=== PATIENT | female | born 1930 | race Caucasian/White ===

== ENCOUNTER → 2018-02-01 | Outpatient (CLI) | payer MEDICARE ==
[2012-03-06 17:14] VITALS: BP 128/59
[~2018-02-01] MED LIST: CALCIUM1 CAP PO; GLIPIZIDE5 MG; KEPPRA 500MG500 MG PO; LISINOPRIL/HCTZ1 TA1; OMEPRAZOLE40 MG PO; TENORMIN100 MG PO
== END ==
LOC: RAD 08:29
DX: N18.3 Chronic kidney disease, stage 3 (moderate) (principal); N26.1 Atrophy of kidney (terminal)

== ENCOUNTER → 2018-09-21 | Outpatient (CLI) | payer MEDICARE ==
[2012-03-06 17:14] VITALS: BP 128/59
[2018-09-21 16:49] LABS: CALCIUM 9.5 mg/dL (8.4-10.2)
== END ==
LOC: LAB 16:27
PROVIDERS: Family Medicine
DX: E87.5 Hyperkalemia (principal)

== ENCOUNTER → 2019-05-02 | Outpatient (CLI) | payer MEDICARE ==
[2012-03-06 17:14] VITALS: BP 128/59
[2019-05-02 15:26] LABS: HEMATOCRIT 35.7 % (37.0-47.0); HEMOGLOBIN 10.8 g/dL (12.5-16.0)
[2019-05-02 16:08] LABS: ALBUMIN 3.6 g/dL (3.4-4.8)
[2019-05-02 16:09] LABS: POTASSIUM 4.8 mmol/L (3.5-5.1)
[2019-05-02 16:10] LABS: CALCIUM 8.6 mg/dL (8.3-10.5)
== END ==
LOC: LAB 14:52
PROVIDERS: Internal Medicine Nephrology
DX: I12.9 Hypertensive chronic kidney disease with stage 1 through stage 4 chronic kidney disease, or unspecified chronic kidney disease (principal); N18.3 Chronic kidney disease, stage 3 (moderate); E21.1 Secondary hyperparathyroidism, not elsewhere classified

== ENCOUNTER → 2019-05-21 | Outpatient (CLI) | payer MEDICARE ==
[2012-03-06 17:14] VITALS: BP 128/59
== END ==
LOC: RAD 11:24 → MAMMO 11:30
DX: Z13.820 Encounter for screening for osteoporosis (principal); M81.0 Age-related osteoporosis without current pathological fracture; M46.86 Other specified inflammatory spondylopathies, lumbar region

== ENCOUNTER → 2019-07-10 | Outpatient (CLI) | payer MEDICARE ==
[2012-03-06 17:14] VITALS: BP 128/59
[2019-07-10 12:08] LABS: URINE APPEARANCE CLEAR; URINE COLOR YELLOW
[2019-07-10 12:09] LABS: URINE BILIRUBIN NEGATIVE (NEGATIVE); URINE BLOOD TRACE (NEGATIVE); URINE GLUCOSE NEGATIVE (NEGATIVE); URINE KETONE NEGATIVE (NEGATIVE); URINE LEUKOCYTE ESTERASE NEGATIVE (NEGATIVE); URINE NITRATE NEGATIVE (NEGATIVE); URINE PROTEIN(semi-quant) TRACE mg/dL (NEGATIVE); URINE UROBILINOGEN NORMAL (NORMAL)
== END ==
LOC: LAB 11:08
PROVIDERS: Internal Medicine Nephrology
DX: R30.0 Dysuria (principal)

== ENCOUNTER → 2019-10-02 | Outpatient (CLI) | payer MEDICARE ==
[2012-03-06 17:14] VITALS: BP 128/59
[2019-10-02 15:00] LABS: POTASSIUM 5.6 mmol/L (3.5-5.1)
[2019-10-02 15:01] LABS: CALCIUM 8.3 mg/dL (8.3-10.5)
== END ==
LOC: LAB 14:26
PROVIDERS: Internal Medicine Nephrology
DX: I12.9 Hypertensive chronic kidney disease with stage 1 through stage 4 chronic kidney disease, or unspecified chronic kidney disease (principal); N18.4 Chronic kidney disease, stage 4 (severe)

== ENCOUNTER → 2020-06-02 | Outpatient (CLI) | payer MEDICARE ==
[2012-03-06 17:14] VITALS: BP 128/59
[2020-06-02 16:19] LABS: ALBUMIN 3.5 g/dL (3.4-4.8)
[2020-06-02 16:20] LABS: POTASSIUM 4.4 mmol/L (3.5-5.1)
[2020-06-02 16:21] LABS: CALCIUM 8.5 mg/dL (8.3-10.5)
== END ==
LOC: LAB 15:53
PROVIDERS: Internal Medicine Nephrology
DX: I12.9 Hypertensive chronic kidney disease with stage 1 through stage 4 chronic kidney disease, or unspecified chronic kidney disease (principal); N18.4 Chronic kidney disease, stage 4 (severe); E21.1 Secondary hyperparathyroidism, not elsewhere classified

== ENCOUNTER → 2020-09-18 | Outpatient (CLI) | payer MEDICARE ==
[2012-03-06 17:14] VITALS: BP 128/59
[~2020-09-18] MED LIST changes: +CALCITRIOL PO; +CALCIUM 600 +1 EAC7 PO; -CALCIUM1 CAP PO; +COREG 6.256.25 MG/TA PO; +COZAAR100 MG PO; +ECOTRIN325 M2 PO; +LEVEMIR100 U/M1 SQ; +NEURONTIN100 M1 PO; +NORVASC 10MG10 MG PO; +NYSTOP POWDER15 GM TP; +PRAVASTATIN SOD10 MG PO; +SODIUM BIC650 MG/TAB PO
[2020-09-18 15:32] LABS: EOS # 0.3 (0.04-0.40); EOS % 4.2 % (1.0-5.0); HEMATOCRIT 30.7 % (37.0-47.0); LYMPH# 1.4 (1.50-4.00); MEAN CELL VOLUME 90 fl (78-100); MEAN CORPUSCULAR HEMOGLOBIN 26 pg (27-31); MEAN CORPUSCULAR HGB CONC 29 g/dL (33-37); MEAN PLATELET VOLUME 10.5 fl (7.4-10.4); MONO # 0.8 (0.20-0.80); PLATELET COUNT 413 K/mm3 (130-400); RED BLOOD COUNT 3.42 M/mm3 (4.10-5.30); RED CELL DISTRIBUTION WIDTH 13.6 % (11.5-14.5); WHITE BLOOD COUNT 7.6 K/mm3 (4.8-10.8)
== END ==
LOC: LAB 14:30
PROVIDERS: Family Medicine
DX: D64.9 Anemia, unspecified (principal)

== ENCOUNTER 2020-09-19 20:28 | Emergency (ER) | payer MEDICARE ==
[~2020-09-19] VITALS: Ht 157.5 cm; Wt 68.2 kg
[~2020-09-19 20:28] MED LIST changes: -CALCITRIOL PO; -COREG 6.256.25 MG/TA PO; -COZAAR100 MG PO; -ECOTRIN325 M2 PO; -LEVEMIR100 U/M1 SQ; -NEURONTIN100 M1 PO; -NORVASC 10MG10 MG PO; -NYSTOP POWDER15 GM TP; -PRAVASTATIN SOD10 MG PO; -SODIUM BIC650 MG/TAB PO
[2020-09-19 21:12] LABS: HEMATOCRIT 31.5 % (37.0-47.0); HEMOGLOBIN 9.3 g/dL (12.5-16.0); MEAN CELL VOLUME 90 fl (78-100); MEAN CORPUSCULAR HEMOGLOBIN 26 pg (27-31); MEAN CORPUSCULAR HGB CONC 30 g/dL (33-37); MEAN PLATELET VOLUME 10.2 fl (7.4-10.4); PLATELET COUNT 496 K/mm3 (130-400); RED BLOOD COUNT 3.52 M/mm3 (4.10-5.30); RED CELL DISTRIBUTION WIDTH 13.5 % (11.5-14.5); WHITE BLOOD COUNT 8.7 K/mm3 (4.8-10.8)
[2020-09-19 21:17] LABS: LYMPHOCYTE 15 % (20-51); MONOCYTE 14 % (3-10)
[2020-09-19 21:18] LABS: ALBUMIN 3.3 g/dL (3.4-4.8); NEUTROPHILS 66 % (42-75); POTASSIUM 5.4 mmol/L (3.5-5.1)
[2020-09-19 21:20] LABS: CALCIUM 7.9 mg/dL (8.3-10.5)
[2020-09-19 21:21] LABS: TOTAL PROTEIN 5.7 g/dL (6.2-8.1)
[2020-09-19 21:23] LABS: TOTAL BILIRUBIN 0.3 mg/dL (0.2-1.2)
[2020-09-19 21:37] LABS: PROTHROMBIN TIME 9.9 SECONDS (9.0-12.0)
[2020-09-19] MEDS ORDERED: ECOTRIN325 M2 PO (21:42)
[2020-09-19 21:43] LABS: URINE APPEARANCE CLEAR; URINE COLOR YELLOW; URINE PROTEIN(semi-quant) 3+ mg/dL (NEGATIVE)
[2020-09-19] MEDS ORDERED: CALCITRIOL PO (21:43)
[2020-09-19 21:44] LABS: URINE BILIRUBIN NEGATIVE (NEGATIVE); URINE BLOOD TRACE (NEGATIVE); URINE KETONE NEGATIVE (NEGATIVE); URINE LEUKOCYTE ESTERASE NEGATIVE (NEGATIVE); URINE MUCUS PRESENT (NOT PRESENT); URINE NITRATE NEGATIVE (NEGATIVE); URINE UROBILINOGEN NORMAL (NORMAL)
[2020-09-19] MEDS ORDERED: COREG 6.256.25 MG/TA PO (21:44)
[2020-09-19] MEDS ORDERED: COZAAR100 MG PO (21:45)
[2020-09-19] MEDS ORDERED: LEVEMIR100 U/M1 SQ ×2 (21:46)
[2020-09-19] MEDS ORDERED: NORVASC 10MG10 MG PO (21:47)
[2020-09-19] MEDS ORDERED: NEURONTIN100 M1 PO (21:47)
[2020-09-19] MEDS ORDERED: NYSTOP POWDER15 GM TP (21:48)
[2020-09-19] MEDS ORDERED: SODIUM BIC650 MG/TAB PO (21:49)
[2020-09-19] MEDS ORDERED: PRAVASTATIN SOD10 MG PO (21:49)
[2020-09-19 23:18] VITALS: BP 162/70
== END 2020-09-19 23:18 | disposition home or self-care (01) ==
LOC: ED 20:28
PROVIDERS: Nurse Practitioner
DX: S01.81XA Laceration without foreign body of other part of head, initial encounter (principal); E11.9 Type 2 diabetes mellitus without complications; I13.10 Hypertensive heart and chronic kidney disease without heart failure, with stage 1 through stage 4 chronic kidney disease, or unspecified chronic kidney disease; Z79.82 Long term (current) use of aspirin; Z79.4 Long term (current) use of insulin; W18.09XA Striking against other object with subsequent fall, initial encounter; Y92.009 Unspecified place in unspecified non-institutional (private) residence as the place of occurrence of the external cause
CPT/HCPCS: 90714

== ENCOUNTER → 2020-10-14 | Outpatient (CLI) | payer MEDICARE ==
[2020-09-19 23:18] VITALS: BP 162/70
[~2020-10-14] MED LIST changes: +CALCITRIOL PO; +COREG 6.256.25 MG/TA PO; +COZAAR100 MG PO; +ECOTRIN325 M2 PO; +LEVEMIR100 U/M1 SQ; +NEURONTIN100 M1 PO; +NORVASC 10MG10 MG PO; +NYSTOP POWDER15 GM TP; +PRAVASTATIN SOD10 MG PO; +SODIUM BIC650 MG/TAB PO
[2020-10-14 10:05] LABS: POTASSIUM 5.6 mmol/L (3.5-5.1)
[2020-10-14 10:06] LABS: CALCIUM 8.2 mg/dL (8.3-10.5); HEMATOCRIT 31.7 % (37.0-47.0); HEMOGLOBIN 9.2 g/dL (12.5-16.0); MEAN CELL VOLUME 86 fl (78-100); MEAN CORPUSCULAR HEMOGLOBIN 25 pg (27-31); MEAN PLATELET VOLUME 10.5 fl (7.4-10.4); PLATELET COUNT 401 K/mm3 (130-400); RED BLOOD COUNT 3.67 M/mm3 (4.10-5.30); RED CELL DISTRIBUTION WIDTH 13.8 % (11.5-14.5); WHITE BLOOD COUNT 7.2 K/mm3 (4.8-10.8)
[2020-10-14 10:15] LABS: MEAN CORPUSCULAR HGB CONC 29 g/dL (33-37)
[2020-10-14 10:38] LABS: LYMPHOCYTE 22 % (20-51); MONOCYTE 15 % (3-10); NEUTROPHILS 59 % (42-75)
== END ==
LOC: LAB 09:41
PROVIDERS: Family Medicine
DX: E83.51 Hypocalcemia (principal)

== ENCOUNTER → 2020-10-16 | Outpatient (CLI) | payer MEDICARE ==
[2020-09-19 23:18] VITALS: BP 162/70
[~2020-10-16] MED LIST changes: +CYANOCOBAL1000 MCG/1 IM; +DAILY VALUE1 EACH PO; +DULCOLAX S10 MG/SUPP RC; +FEOSOL325 MG PO; +HYDROCHLOROTH12.5 M2 PO; +KLONOPIN 0.5MG0.5 MG PO; +LEVEMIR FLEX100 U/ML; +LORATADINE10 MG PO; +MIRALAX17 GM PO; +NORCO 325 MG-51 TA1 PO; +NOVOLOG FLEX100 U/ML; +SENNA8.6 M1; +TRAMADOL 50 MG TAB PO; +TYLENOL 325MG325 MG PO; +VITAMIN C500 M6 PO
[2020-10-16 12:50] LABS: CALCIUM 8.4 mg/dL (8.3-10.5)
== END ==
LOC: LAB 09:30
PROVIDERS: Family Medicine
DX: N18.4 Chronic kidney disease, stage 4 (severe) (principal)

== ENCOUNTER → 2020-10-17 | Outpatient (CLI) | payer MEDICARE ==
[2020-09-19 23:18] VITALS: BP 162/70
[2020-10-17 07:33] LABS: POTASSIUM 5.5 mmol/L (3.5-5.1)
[2020-10-17 07:35] LABS: CALCIUM 8.1 mg/dL (8.3-10.5)
== END ==
LOC: LAB 06:44
PROVIDERS: Family Medicine
DX: E11.65 Type 2 diabetes mellitus with hyperglycemia (principal); E11.22 Type 2 diabetes mellitus with diabetic chronic kidney disease; N18.4 Chronic kidney disease, stage 4 (severe)

== ENCOUNTER → 2020-10-19 | Outpatient (CLI) | payer MEDICARE ==
[2020-09-19 23:18] VITALS: BP 162/70
[2020-10-19 11:25] LABS: POTASSIUM 4.6 mmol/L (3.5-5.1)
[2020-10-19 11:26] LABS: CALCIUM 7.8 mg/dL (8.3-10.5)
== END ==
LOC: LAB 10:55
PROVIDERS: Family Medicine
DX: N18.4 Chronic kidney disease, stage 4 (severe) (principal)

== ENCOUNTER → 2020-10-22 | Outpatient (CLI) | payer MEDICARE ==
[2020-10-22 11:57] LABS: ALBUMIN 3.5 g/dL (3.4-4.8); POTASSIUM 5.2 mmol/L (3.5-5.1)
[2020-10-22 11:58] LABS: CALCIUM 8.4 mg/dL (8.3-10.5)
[2020-10-22 12:00] LABS: TOTAL PROTEIN 6.3 g/dL (6.2-8.1)
[2020-10-22 12:01] LABS: TOTAL BILIRUBIN 0.2 mg/dL (0.2-1.2)
== END ==
LOC: LAB 11:35
PROVIDERS: Family Medicine
DX: E83.51 Hypocalcemia (principal)

== ENCOUNTER → 2020-10-26 | Outpatient (CLI) | payer MEDICARE ==
[2020-10-26 11:39] LABS: EOS # 0.3 (0.04-0.40); EOS % 4.2 % (1.0-5.0); HEMATOCRIT 28.5 % (37.0-47.0); HEMOGLOBIN 8.7 g/dL (12.5-16.0); LYMPH# 1.2 (1.50-4.00); MEAN CELL VOLUME 86 fl (78-100); MEAN CORPUSCULAR HEMOGLOBIN 26 pg (27-31); MEAN CORPUSCULAR HGB CONC 31 g/dL (33-37); MEAN PLATELET VOLUME 11.1 fl (7.4-10.4); MONO # 0.8 (0.20-0.80); NEU # 4.4 (1.40-6.50); PLATELET COUNT 308 K/mm3 (130-400); RED BLOOD COUNT 3.32 M/mm3 (4.10-5.30); RED CELL DISTRIBUTION WIDTH 13.7 % (11.5-14.5); WHITE BLOOD COUNT 6.7 K/mm3 (4.8-10.8)
[2020-10-26 11:57] LABS: POTASSIUM 4.6 mmol/L (3.5-5.1)
[2020-10-26 11:58] LABS: CALCIUM 7.8 mg/dL (8.3-10.5)
[2020-10-26 22:08] LABS: FOLATE (FOLIC ACID) 11.4 ng/mL (7.0-31.4)
== END ==
LOC: LAB 11:13
PROVIDERS: Family Medicine
DX: N18.4 Chronic kidney disease, stage 4 (severe) (principal)

== ENCOUNTER → 2020-11-12 | Outpatient (REF) ==
[2020-11-12 16:45] LABS: HEMATOCRIT 27.6 % (37.0-47.0); HEMOGLOBIN 8.1 g/dL (12.5-16.0); MEAN CELL VOLUME 91 fl (78-100); MEAN CORPUSCULAR HEMOGLOBIN 27 pg (27-31); MEAN PLATELET VOLUME 10.2 fl (7.4-10.4); PLATELET COUNT 328 K/mm3 (130-400); RED BLOOD COUNT 3.05 M/mm3 (4.10-5.30); RED CELL DISTRIBUTION WIDTH 16.8 % (11.5-14.5); WHITE BLOOD COUNT 10.8 K/mm3 (4.8-10.8)
[2020-11-12 17:02] LABS: MEAN CORPUSCULAR HGB CONC 29 g/dL (33-37)
[2020-11-12 17:50] LABS: HYPOCHROMIA 1+; LYMPHOCYTE 13 % (20-51); MONOCYTE 10 % (3-10); NEUTROPHILS 76 % (42-75)
== END ==
LOC: LAB 16:03
PROVIDERS: Physician Assistant
DX: Z01.89 Encounter for other specified special examinations (principal)

== ENCOUNTER → 2020-11-25 | Outpatient (REF) ==
[2020-11-25 16:59] LABS: HEMOGLOBIN 9.1 g/dL (12.5-16.0); MEAN CELL VOLUME 89 fl (78-100); MEAN CORPUSCULAR HEMOGLOBIN 26 pg (27-31); MEAN PLATELET VOLUME 10.3 fl (7.4-10.4); PLATELET COUNT 420 K/mm3 (130-400); RED BLOOD COUNT 3.48 M/mm3 (4.10-5.30); RED CELL DISTRIBUTION WIDTH 17.2 % (11.5-14.5); WHITE BLOOD COUNT 7.7 K/mm3 (4.8-10.8)
[2020-11-25 17:02] LABS: POTASSIUM 5.4 mmol/L (3.5-5.1)
[2020-11-25 17:03] LABS: CALCIUM 8.3 mg/dL (8.3-10.5)
[2020-11-25 17:09] LABS: MEAN CORPUSCULAR HGB CONC 29 g/dL (33-37)
[2020-11-25 17:27] LABS: LYMPHOCYTE 20 % (20-51); MONOCYTE 15 % (3-10); NEUTROPHILS 63 % (42-75)
== END ==
LOC: LAB 16:45
PROVIDERS: Family Medicine
DX: Z01.89 Encounter for other specified special examinations (principal)

== ENCOUNTER → 2020-11-27 | Outpatient (REF) | payer MEDICARE | LOC: LAB 13:22 → EDSTATUS 13:27 | DX: E53.8 Deficiency of other specified B group vitamins (principal) ==

== ENCOUNTER → 2020-12-01 | Outpatient (REF) ==
[2020-12-01 12:44] LABS: PH-URINE 6.5 (5.0 - 8.0); URINE APPEARANCE HAZY; URINE BILIRUBIN NEGATIVE (NEGATIVE); URINE BLOOD NEGATIVE (NEGATIVE); URINE COLOR YELLOW; URINE GLUCOSE NEGATIVE (NEGATIVE); URINE KETONE NEGATIVE (NEGATIVE); URINE LEUKOCYTE ESTERASE NEGATIVE (NEGATIVE); URINE NITRATE NEGATIVE (NEGATIVE); URINE PROTEIN(semi-quant) 2+ mg/dL (NEGATIVE); URINE UROBILINOGEN NORMAL (NORMAL)
== END ==
LOC: LAB 10:50
PROVIDERS: Family Medicine
DX: Z01.89 Encounter for other specified special examinations (principal)

== ENCOUNTER 2020-12-09 12:55 | Outpatient (RCR) | payer MEDICARE ==
[~2020-12-09 12:55] MED LIST changes: -CYANOCOBAL1000 MCG/1 IM; -DAILY VALUE1 EACH PO; -DULCOLAX S10 MG/SUPP RC; -FEOSOL325 MG PO; -HYDROCHLOROTH12.5 M2 PO; -KLONOPIN 0.5MG0.5 MG PO; -LEVEMIR FLEX100 U/ML; -LORATADINE10 MG PO; -MIRALAX17 GM PO; -NORCO 325 MG-51 TA1 PO; -NOVOLOG FLEX100 U/ML; -SENNA8.6 M1; -TRAMADOL 50 MG TAB PO; -TYLENOL 325MG325 MG PO; -VITAMIN C500 M6 PO
[2020-12-09 13:40] VITALS: BP 151/67
[2020-12-09] MEDS ORDERED: CYANOCOBAL1000 MCG/1 IM ×2 (13:49)
[2020-12-09] MEDS ORDERED: FEOSOL325 MG PO (13:50)
[2020-12-09] MEDS ORDERED: HYDROCHLOROTH12.5 M2 PO (13:51)
[2020-12-09] MEDS ORDERED: LORATADINE10 MG PO (13:52)
[2020-12-13] MEDS ORDERED: TYLENOL 325MG325 MG PO (15:19)
[2020-12-13] MEDS ORDERED: KLONOPIN 0.5MG0.5 MG PO (15:20)
[2020-12-13] MEDS ORDERED: DULCOLAX S10 MG/SUPP RC (15:21)
[2020-12-13] MEDS ORDERED: MIRALAX17 GM PO (15:21)
[2020-12-13] MEDS ORDERED: DAILY VALUE1 EACH PO (15:22)
[2020-12-13] MEDS ORDERED: LEVEMIR FLEX100 U/ML (15:22)
[2020-12-13] MEDS ORDERED: NORCO 325 MG-51 TA1 PO (15:23)
[2020-12-13] MEDS ORDERED: NOVOLOG FLEX100 U/ML (15:23)
[2020-12-13] MEDS ORDERED: SENNA8.6 M1 ×2 (15:24→15:25)
[2020-12-13] MEDS ORDERED: TRAMADOL 50 MG TAB PO (15:26)
[2020-12-13] MEDS ORDERED: VITAMIN C500 M6 PO (15:26)
== END 2021-01-01 10:10 | disposition expired ==
LOC: AMSURD 12:55 → EDSTATUS 13:30 → AMSURD 01-01 10:10
DX: N18.9 Chronic kidney disease, unspecified (principal); D63.1 Anemia in chronic kidney disease; Z79.899 Other long term (current) drug therapy
CPT/HCPCS: J2916; J7050

== ENCOUNTER 2020-12-13 06:51 | Emergency (ER) | payer MEDICARE ==
[~2020-12-13 06:51] MED LIST changes: +CYANOCOBAL1000 MCG/1 IM; +FEOSOL325 MG PO; +HYDROCHLOROTH12.5 M2 PO; +LORATADINE10 MG PO
[2020-12-13 07:46] LABS: HEMATOCRIT 37.6 % (37.0-47.0); HEMOGLOBIN 10.9 g/dL (12.5-16.0); MEAN CELL VOLUME 92 fl (78-100); MEAN CORPUSCULAR HEMOGLOBIN 27 pg (27-31); MEAN PLATELET VOLUME 10.6 fl (7.4-10.4); RED BLOOD COUNT 4.11 M/mm3 (4.10-5.30)
[2020-12-13 07:48] LABS: MEAN CORPUSCULAR HGB CONC 29 g/dL (33-37); PLATELET COUNT 600 K/mm3 (130-400); RED CELL DISTRIBUTION WIDTH 18.3 % (11.5-14.5); WHITE BLOOD COUNT 22.5 K/mm3 (4.8-10.8)
[2020-12-13 08:01] LABS: ALBUMIN 3.3 g/dL (3.4-4.8)
[2020-12-13 08:02] LABS: POTASSIUM 5.1 mmol/L (3.5-5.1)
[2020-12-13 08:03] LABS: CALCIUM 8.3 mg/dL (8.3-10.5)
[2020-12-13 08:04] LABS: TOTAL PROTEIN 6.1 g/dL (6.2-8.1)
[2020-12-13 08:06] LABS: TOTAL BILIRUBIN 0.3 mg/dL (0.2-1.2)
[2020-12-13 08:19] LABS: TROPONIN-I 0.05 ng/mL (<0.030)
[2020-12-13 08:24] LABS: URINE APPEARANCE CLOUDY; URINE BILIRUBIN NEGATIVE (NEGATIVE); URINE COLOR YELLOW; URINE GLUCOSE 50 mg/dL mg/dL (NEGATIVE); URINE KETONE NEGATIVE (NEGATIVE); URINE PROTEIN(semi-quant) 3+ mg/dL (NEGATIVE); URINE UROBILINOGEN NORMAL (NORMAL)
[2020-12-13 08:25] LABS: URINE BLOOD NEGATIVE (NEGATIVE); URINE LEUKOCYTE ESTERASE TRACE (NEGATIVE); URINE NITRATE NEGATIVE (NEGATIVE); URINE WBC 0-1 /hpf (0-3)
[2020-12-13 08:33] LABS: LYMPHOCYTE 22 % (20-51); MONOCYTE 6 % (3-10); NEUTROPHILS 70 % (42-75)
[2020-12-13 08:39] LABS: D-DIMER 5.04 mg/L FEU (0.15-0.50)
[2020-12-13] MEDS ORDERED: TYLENOL 325MG325 MG PO (15:19)
[2020-12-13] MEDS ORDERED: KLONOPIN 0.5MG0.5 MG PO (15:20)
[2020-12-13] MEDS ORDERED: MIRALAX17 GM PO (15:21)
[2020-12-13] MEDS ORDERED: DULCOLAX S10 MG/SUPP RC (15:21)
[2020-12-13] MEDS ORDERED: DAILY VALUE1 EACH PO (15:22)
[2020-12-13] MEDS ORDERED: LEVEMIR FLEX100 U/ML (15:22)
[2020-12-13] MEDS ORDERED: NOVOLOG FLEX100 U/ML (15:23)
[2020-12-13] MEDS ORDERED: NORCO 325 MG-51 TA1 PO (15:23)
[2020-12-13] MEDS ORDERED: SENNA8.6 M1 ×2 (15:24→15:25)
[2020-12-13] MEDS ORDERED: VITAMIN C500 M6 PO (15:26)
[2020-12-13] MEDS ORDERED: TRAMADOL 50 MG TAB PO (15:26)
[2020-12-13 17:01] VITALS: BP 166/78
== END 2020-12-13 14:15 | disposition other institution (70) ==
LOC: ED 06:51
PROVIDERS: Family Medicine
DX: J81.0 Acute pulmonary edema (principal); I25.2 Old myocardial infarction; E11.22 Type 2 diabetes mellitus with diabetic chronic kidney disease; I13.0 Hypertensive heart and chronic kidney disease with heart failure and stage 1 through stage 4 chronic kidney disease, or unspecified chronic kidney disease; I50.9 Heart failure, unspecified; N18.9 Chronic kidney disease, unspecified; Z95.0 Presence of cardiac pacemaker; Z79.82 Long term (current) use of aspirin; Z79.4 Long term (current) use of insulin; Z20.822 Contact with and (suspected) exposure to COVID-19
CPT/HCPCS: J0360; J1815; J1940

== ENCOUNTER 2020-12-13 14:10 | Inpatient (IN) | payer MEDICARE ==
[2020-12-13] MEDS ORDERED: TYLENOL 325MG325 MG PO (15:19)
[2020-12-13] MEDS ORDERED: KLONOPIN 0.5MG0.5 MG PO (15:20)
[2020-12-13] MEDS ORDERED: MIRALAX17 GM PO (15:21)
[2020-12-13] MEDS ORDERED: DULCOLAX S10 MG/SUPP RC (15:21)
[2020-12-13] MEDS ORDERED: DAILY VALUE1 EACH PO (15:22)
[2020-12-13] MEDS ORDERED: LEVEMIR FLEX100 U/ML (15:22)
[2020-12-13] MEDS ORDERED: NORCO 325 MG-51 TA1 PO (15:23)
[2020-12-13] MEDS ORDERED: NOVOLOG FLEX100 U/ML (15:23)
[2020-12-13] MEDS ORDERED: SENNA8.6 M1 ×2 (15:24→15:25)
[2020-12-13] MEDS ORDERED: TRAMADOL 50 MG TAB PO (15:26)
[2020-12-13] MEDS ORDERED: VITAMIN C500 M6 PO (15:26)
[2020-12-13 16:47] VITALS: BP 127/74; BP 127/741
[2020-12-13 22:00] VITALS: BP 186/96
[2020-12-14 02:07] VITALS: BP 136/80
[2020-12-14 06:02] VITALS: BP 173/89
[2020-12-14 09:43] VITALS: BP 162/82
[2020-12-14 10:22] LABS: HEMATOCRIT 36.6 % (37.0-47.0); HEMOGLOBIN 10.7 g/dL (12.5-16.0); MEAN CELL VOLUME 91 fl (78-100); MEAN CORPUSCULAR HEMOGLOBIN 27 pg (27-31); MEAN PLATELET VOLUME 9.9 fl (7.4-10.4); PLATELET COUNT 460 K/mm3 (130-400); RED BLOOD COUNT 4.02 M/mm3 (4.10-5.30); WHITE BLOOD COUNT 16.9 K/mm3 (4.8-10.8)
[2020-12-14 10:27] LABS: MEAN CORPUSCULAR HGB CONC 29 g/dL (33-37); RED CELL DISTRIBUTION WIDTH 18.4 % (11.5-14.5)
[2020-12-14 10:34] LABS: POTASSIUM 5.1 mmol/L (3.5-5.1)
[2020-12-14 10:36] LABS: CALCIUM 8.4 mg/dL (8.3-10.5)
[2020-12-14 10:48] LABS: TROPONIN-I 0.47 ng/mL (<0.030)
[2020-12-14 11:07] LABS: LYMPHOCYTE 10 % (20-51); MONOCYTE 3 % (3-10); NEUTROPHILS 87 % (42-75); OVALOCYTES 1+
[2020-12-14 13:47] VITALS: BP 162/82
[2020-12-14 14:02] VITALS: BP 135/76
== END 2020-12-14 14:50 | disposition hospice, inpatient (51) | DRG 189 ==
LOC: MED/SURG 14:10
PROVIDERS: ADMIT Family Medicine
DX: J81.0 Acute pulmonary edema (principal); I13.0 Hypertensive heart and chronic kidney disease with heart failure and stage 1 through stage 4 chronic kidney disease, or unspecified chronic kidney disease; E11.22 Type 2 diabetes mellitus with diabetic chronic kidney disease; I50.9 Heart failure, unspecified; N18.9 Chronic kidney disease, unspecified; F03.90 Unspecified dementia, unspecified severity, without behavioral disturbance, psychotic disturbance, mood disturbance, and anxiety; I25.2 Old myocardial infarction; Z66 Do not resuscitate; Z79.4 Long term (current) use of insulin; Z79.82 Long term (current) use of aspirin; Z95.0 Presence of cardiac pacemaker
CPT/HCPCS: J0360; J1650; J1815; J1940; J2270